=== PATIENT | female | born 1990 | race Caucasian/White ===

== ENCOUNTER 2017-09-20 06:00 | Inpatient (IN) ==
[2017-09-20] MEDS ORDERED: Famotidine 20 MG/2 ML VIAL IVP PRN (06:37)
[2017-09-20] MEDS ORDERED: Lidocaine 1% 20 ML MDV INFILT PRN (06:37)
[2017-09-20] MEDS ORDERED: Naloxone 0.4 MG/ML INJ IVP PRN (06:37)
[2017-09-20] MEDS ORDERED: Ringers Solution, Lactated 1,000 ML ONE (06:37)
[2017-09-20] MEDS ORDERED: Ondansetron 4 MG/2 ML VIAL IVP PRN (06:37)
[2017-09-20] MEDS ORDERED: *HR* Nalbuphine 10 MG/ML AMPUL IVP PRN (06:37)
[2017-09-20] MEDS ORDERED: Ringers Solution, Lactated 1,000 ML IVC SCH (06:45)
[2017-09-20] MEDS ORDERED: Oxytocin 20 units/ LR 1000 mL 20 UNIT/1,000 ML BAG IVC SCH (06:45)
[2017-09-20 06:50] LABS: Basophils % 0.1 %; Eosinophils # 0.1 K/mcL (0.0-0.6); Eosinophils % 0.5 %; Hematocrit 32.3 % (35.3-44.9); Hemoglobin 10.3 g/dL (11.5-15.4); Immature Granulocytes % 0.8 % (0-4); Lymphocytes # 2.6 K/mcL (0.6-4.6); Lymphocytes % 22.8 %; Mean Corpuscular HGB Conc 31.9 g/dL (31.6-35.5); Mean Corpuscular Hemoglobin 27.2 pg (28.0-33.3); Mean Corpuscular Volume 85.4 fL (83.0-100.0); Mean Platelet Volume 12.2 fL (9.4-12.4); Monocytes # 0.9 K/mcL (0.0-1.3); Monocytes % 8.1 %; Neutrophils # 7.6 K/mcL (1.6-8.9); Platelet Count 183 K/mcL (140-400); Red Blood Count 3.78 M/mcL (3.82-4.97); Red Cell Distribution Width 14.2 % (11.5-14.5); Segmented Neutrophils % 67.7 %
[2017-09-20 07:00] LABS: Amphetamine Screen,Urine Negative ng/mL (Cutoff=1000); Barbiturate Screen,Urine Negative ng/mL (Cutoff=200); Benzodiazepines Screen,Urine Negative ng/mL (Cutoff=200); Cannabinoid Screen,Urine Negative ng/mL (Cutoff = 50); Cocaine Screen,Urine Negative ng/mL (Cutoff= 300); Opiate Screen,Urine Negative ng/mL (Cutoff=300); Phencyclidine Screen,Urine Negative ng/mL (Cutoff=25)
--- NOTE | 2017-09-20 07:01 | OB/GYN History & Physical ---
Date of Encounter: 09/20/17 Time of Encounter: 06:57 Assessment and Plan (1) 41 weeks gestation of Current visit: Yes Status: Acute (2) Post term , 41 weeks Current visit: Yes Status: Acute (3) Encounter for elective induction of labor Current visit: Yes Status: Acute Admit to L&D for scheduled IOL Labs - CBC CEFM Pain management plan: undecided but likely epidural Anticipate POC to be decided per Dr. Robertson History of Present Illness Chief complaint: Scheduled IOL HPI: Ms. Lopez is a 26 year old female at 41weeks +1 day gestation with an EDB of 09/12/17 dated by LMP. She presents for scheduled IOL. She endorses good FM and denies contractions, LOF, vaginal bleeding. Her course has been uncomplicated. She has been cared for by our practice and records have been reviewed. Labs: O+ GBS- HIV- Hep B- T. Palladium - Rubella immune Varicella immune Past Med Surg Social Fam HX - Past Medical History Medical history: no medical history - Past Surgical History Surgical History: no surgical history - Social History Smoking Status: Never smoker Alcohol use: none Drug use: none Current living situation: Home - Independent Activity Level: Independent ambulation Recent Out of Country Travel Within the Last 8 Weeks: No Obstetrical History - Pregnancies : 1 Para: 0 Term: 0 : 0 Ab's: 0 Livin Medications and Allergies Vit/Iron Fumarate/FA [ Tablet] 1 tab ORAL RINSE DAILY 09/20/17 [History] 3 Allergy/AdvReac Type Severity Reaction Status Date / Time No Known Allergies Allergy Verified 09/20/17 07:03 Review of System OB All systems PM: reviewed and no additional remarkable complaints except as stated Exam - Constitutional Constitutional: well developed, well nourished, no acute distress, average body habitus - HEENT HEENT: Normocephaly, Mucus Membranes Moist - Neck Neck exam: full ROM - Lungs Respiratory exam: CTAB - Cardiovascular Cardiovascular exam: RRR, +S1, +S2 - Breasts Breast: bilateral: normal - Abdomen Abdomen: Present: bowel sounds normal, gravid, non tender - Extremities Extremities exam: normal inspection, radial pulses palpable and symmetrical - Vulva Vulva: bilateral: normal - Vagina Vagina: Present: normal moisture - Cervix Dilation: 1 Effacement: 60 Station: -2 - Uterus Uterus exam: Present: normal size, normal contour - Anus/Rectum Anus/Rectum: Present: normal perianal skin Results Result Diagrams: 09/20/17 06:00 Abnormal lab results WBC 11.2 K/mcL (4.3-11.1) H 09/20/17 06:00 RBC 3.78 M/mcL (3.82-4.97) L 09/20/17 06:00 Hgb 10.3 g/dL (11.5-15.4) L 09/20/17 06:00 Hct 32.3 % (35.3-44.9) L 09/20/17 06:00 MCH 27.2 pg (28.0-33.3) L 09/20/17 06:00 All other labs normal. - VTE Reasons for not Prescribing Prophylaxis: Treatment not Indicated - Low risk for VTE
[2017-09-20] MEDS ORDERED: Methylergonovine 0.2 MG/ML AMPUL IM ONE (08:11)
[2017-09-20] MEDS ORDERED: miSOPROStol 100 MCG TABLET PO STA ×2 (08:43→08:55)
--- NOTE | 2017-09-20 08:58 | OB Labor Progress Note ---
Date of Encounter: 09/20/17 Time of Encounter: 08:56 Labor Progress Note - Subjective Subjective: Pt denies complaints at this time. - Cervix Cervix: 80/-2 - Heart Tones Heart Tones: Category I - [place]: none - Interventions Interventions: Christie balloon placed in cervix using sterile technique. Balloon inflated with 40ml sterile water. Pt tolerated well. - Plan Plan: Continue to monitor. Allow pt to be OOB on birthing ball.
--- NOTE | 2017-09-20 09:41 | Anesthesia Evaluation PreOp ---
Date of Encounter: 09/20/17 Time of Encounter: 09:23 - Past History Planned Operation: vaginal del, G1 induction 41wks Cardiac History: Denies any Significant Hx Pulmonary History: Denies Any Significant HX BAG SHAKER History: Denies Any Significant HX Other Medical History: Denies Any Significant HX Anesthesia History: No Prior Anesthetic Complications, Past Anesthesia Alcohol Use: none Drug use: none Medications and Allergies Vit/Iron Fumarate/FA [ Tablet] 1 tab ORAL RINSE DAILY 09/20/17 [History] 3 Allergy/AdvReac Type Severity Reaction Status Date / Time No Known Allergies Allergy Verified 09/20/17 07:03 Anesthesia Results - Labs 09/20/17 06:00 Anesthesia Exam - HEENT Pupil (Motor): Pupils equal Mallampati: I Teeth: Normal Oral Opening: Greater than 3 - BAG SHAKER LOC: Oriented BAG SHAKER Motor: Normal RUE, Normal LUE, Normal RLE, Normal LLE, Normal Face BAG SHAKER Sensory: Normal: RUE, LUE, RLE, LLE, Face - Cardiac Rhythm: Regular Murmur: None - Pulmonary Breath Sounds: bilateral Clear Respiratory Effort: Symmetrical Anesthesia Assess/Plan ASA Score: 2 Modified Aren Scale for Level of Consciousness: Cooperative, oriented, and tranquil Anesthetic Plan: General, Regional Monitoring Plan: Standard Monitors Recovery Plan: PACU
[2017-09-20] MEDS ORDERED: Epidural Premix (fent/bupiv) 110 ML EP SCH (09:45)
--- NOTE | 2017-09-20 14:15 | Anesthesia Procedures ---
Date of Encounter: 09/20/17 Time of Encounter: 13:53 Procedures: Anesthesia - Epidural/Spinal Patient ID/Chart reviewed: Yes Patient examined: Yes OB Eval: Gestational age: term OB Eval: : 1 OB Eval: Contractions: Non-stressed pattern Consent Obtained: Yes Supplemental Oxygen: None/Room Air Site Prep: Aseptic Technique, Sterile prep and drape, 0.5% Chlorhexidine/Alcohol Patient position: upright Local Anesthetic: Lidocaine 1% Amount of Local Anesthetic used: 1 Touhy Needle Gauge: 18 Touhy Needle Depth (cm): 6 Catheter Depth at Skin (cm): 10 Test Dose (1.5% Lido + Epi): Volume given (mls): 3 Test Dose Result: Negative Loading Dose: Other: 10ml from solution Loading Dose Administered: Thru Catheter Infusion Med: 0.125% Bupivacaine w/ 2 mcg/ml Fentanyl Infusion Rate (mls/hr): [address]: Tegaderm, Tape Interspace Used: L3-L4 Loss of Resistance (CUCO): Yes (saline) Blood: No CSF: No Paresthesia: No Procedure: vss though out procedure, FHR stable per RN's
[2017-09-20] MEDS ORDERED: Epidural Premix (fent/bupiv) 110 ML EP ONE ×2 (14:19→19:26)
--- NOTE | 2017-09-20 15:10 | OB Labor Progress Note ---
Date of Encounter: 09/20/17 Time of Encounter: 15:08 Labor Progress Note - Subjective Subjective: Pt comfortable with epidural - Cervix Cervix: 5/80/0 - Heart Tones Heart Tones: Category I - Dietrich Dietrich: 2-4 minutes - Interventions Interventions: AROM for moderate amount clear fluid - Plan Plan: Continue to monitor and change position frequently. Will augment with pitocin if needed. Anticipate .
[2017-09-20] MEDS ORDERED: Acetaminophen 325 MG TABLET PO ONE (21:59)
--- NOTE | 2017-09-20 23:57 | OB/GYN Procedure Note ---
Delivery - Delivery Date: 09/20/17 Provider: Carline Robertson Intrapartum events: none Delivery induction: AROM, oxytocin, jacob, misoprostol Delivery monitor: external FHT, external uterine, internal uterine Anesthesia: epidural Estimated Blood Loss: 500 - Infant (s) A Delivery Date: 09/20/17 Infant Delivery Time: 23:30 Presentation: vertex Position: OTIS Route of delivery: Gender: Male Viability: Viable Pounds: 9 Ounces: 7 at 1 minute: 8 at 5 mins: 9 Shoulder Dystocia: not encountered Specimens collected: cord blood Placenta: spontaneous Cord: nuchal cord, 3 umbilical vessels, delivered through nuchal - Repair Episiotomy: none Laceration Description: Perineal - 3rd Degree (partial) - Complications Delivery complications: none Delivery comments: Called to room with patient complete and +2 station. Under maternal effort she delivered a viable male weighing 9 lbs 7 oz and Apgars 8 and 9 at one and five minutes respectively. She delivered over a partial third degree laceration. was bulb suctioned at the perineum. A loose nuchal cord was noted and she delivered through. was placed on mom's abdomen. Cord was clamped and cut. Cord blood was collected. Third degree laceration was repaired using 2-0 and 3-0 vicryl in standard fashion. Placenta delivered spontaneously, complete, and intact with a 3 vessel cord. Mother and are recovering in the LDR in stable condition. - Disposition Mom disposition: stable in LDR disposition: stable in LDR
[2017-09-21] MEDS ORDERED: Methylergonovine 0.2 MG/ML AMPUL IM ONE (00:01)
[2017-09-21] MEDS ORDERED: Acetaminophen 325 MG TABLET PO PRN (00:18)
[2017-09-21] MEDS ORDERED: Oxytocin 20 units/ LR 1000 mL 20 UNIT/1,000 ML BAG IVC SCH (00:18)
[2017-09-21] MEDS ORDERED: Oxytocin 20 units/ LR 1000 mL 20 UNIT/1,000 ML BAG IVC ONE (00:18)
[2017-09-21 04:51] LABS: Basophils % 0.1 %; Platelet Count 169 K/mcL (140-400)
[2017-09-21 04:53] LABS: Hematocrit 25.9 % (35.3-44.9); Hemoglobin 8.3 g/dL (11.5-15.4); Immature Granulocytes % 0.8 % (0-4); Lymphocytes # 1.6 K/mcL (0.6-4.6); Lymphocytes % 6.3 %; Mean Corpuscular Hemoglobin 26.9 pg (28.0-33.3); Mean Corpuscular Volume 84.1 fL (83.0-100.0); Mean Platelet Volume 12.6 fL (9.4-12.4); Monocytes % 7.4 %; Neutrophils # 21.4 K/mcL (1.6-8.9); Red Blood Count 3.08 M/mcL (3.82-4.97); Red Cell Distribution Width 14.4 % (11.5-14.5); Segmented Neutrophils % 85.4 %
[2017-09-21 05:18] LABS: Monocytes # 1.9 K/mcL (0.0-1.3)
[2017-09-21 05:45] LABS: Platelet Estimate Normal (Normal)
[2017-09-21 05:46] LABS: Polychromasia 1+ (Not Present)
[2017-09-21] MEDS: Prenatal Vit/FA 1 EACH TABLET PO SCH (07:52)
[2017-09-21] MEDS: Ibuprofen 600 MG TABLET PO PRN ×3 (07:52→21:56)
--- NOTE | 2017-09-21 09:19 | OB/GYN Progress Note ---
Date of Encounter: 09/21/17 Time of Encounter: 09:16 - Assessment and Plan (1) Vaginal delivery Current Visit: Yes Status: Acute S/P vaginal delivery day 1 Meeting post delivery milestones Anticipate discharge home tomorrow. Subjective - Subjective Principal diagnosis: Vaginal Delivery Interval history: S/P Vaginal delivery Day 1 Pain is well controlled Lochia is light with clots Tolerating regular diet VSS with Support Anticipate discharge home tomorrow Patient reports: appetite normal, voiding normally, pain well controlled, ambulating normally [place]: doing well, nursing well Objective - Latest Vital Signs Latest vital signs: Vital Signs Temp Pulse Resp BP Pulse Ox 09/21/17 07:30 98.4 F 87 16 105/71 98 09/21/17 04:35 98.1 F 62 14 108/69 99 09/21/17 03:30 98.3 F 81 16 120/74 96 09/21/17 01:30 97.5 F L 66 14 114/75 98 Intake and Output 09/20/17 09/21/17 09/21/17 23:59 07:59 15:59 Intake Total 550 / 550 Output Total 2400 / 2400 Balance -1850 / -1850 Intake: Oral 550 / 550 Output: Urine 2400 / 2400 Other: Weight 75.296 kg Patient Weight 09/21/17 23:59 Weight 75.296 kg - Exam Lungs: bilateral: normal Chest: Normal S1, Normal S2 Extremities: Present: normal Abdomen: Present: normal appearance, soft. Absent: gravid, distention, tenderness Uterus: Present: normal, firm Uterus Position: At Umbilicus, Midline - Labs Labs: Laboratory Results - last 24 hr 09/21/17 04:09 WBC 25.0 H D RBC 3.08 L Hgb 8.3 L D Hct 25.9 L MCV 84.1 MCH 26.9 L MCHC 32.0 RDW 14.4 Plt Count 169 MPV 12.6 H Immature Gran % 0.8 Seg Neutrophils % 85.4 Lymphocytes % 6.3 Monocytes % 7.4 Eosinophils % 0.0 Basophils % 0.1 Neutrophils # 21.4 H Lymphocytes # 1.6 Monocytes # 1.9 H Eosinophils # 0.0 Basophils # 0.0 Platelet Estimate Normal Polychromasia 1+ A
[2017-09-22 08:17] VITALS: BP 84/41
--- NOTE | 2017-09-22 09:09 | Discharge Summary ---
Date of Encounter: 09/22/17 Time of Encounter: 09:04 - Discharge Diagnosis (1) Normal vaginal delivery of first Priority: Primary Status: Acute Comments: PPD #2 Pain well controlled with PO pain meds Tolerating regular diet Voiding independently Passing flatus, but no BM yet Lochia moderate, no clots Discharge home today (2) Breast feeding status of mother Priority: Secondary Status: Acute (3) anemia Priority: Secondary Status: Acute (4) Third degree perineal laceration during delivery Priority: Secondary Status: Acute Qualifiers: Third degree perineal laceration subtype: unspecified Qualified Code(s): O70.20 - Third degree perineal laceration during delivery, unspecified - Discharge Medications Prescriptions: Ibuprofen [Motrin] 600 mg PO Q6HR PRN #60 tablet PRN Reason: Cramping Docusate [Colace] 100 mg PO BID #60 capsule Ferrous Sulfate 325 mg PO BID #60 tablet Home Medications: Vit/Iron Fumarate/FA [ Tablet] 1 tab ORAL RINSE DAILY 09/20/17 [History] Acetaminophen [Tylenol] 650 mg PO Q6HR PRN tablet 09/22/17 [Rx] Docusate [Colace] 100 mg PO BID #60 capsule 09/22/17 [Rx] Ferrous Sulfate 325 mg PO BID #60 tablet 09/22/17 [Rx] Ibuprofen [Motrin] 600 mg PO Q6HR PRN #60 tablet 09/22/17 [Rx] Allergies/Adverse Reactions: 3 Allergy/AdvReac Type Severity Reaction Status Date / Time No Known Allergies Allergy Verified 09/20/17 07:03 Data Procedures and tests throughout hospitalization: Laboratory Tests 09/20/17 09/20/17 09/21/17 06:00 06:30 04:09 WBC 11.2 H 25.0 H D RBC 3.78 L 3.08 L Hgb 10.3 L 8.3 L D Hct 32.3 L 25.9 L MCV 85.4 84.1 MCH 27.2 L 26.9 L MCHC 31.9 32.0 RDW 14.2 14.4 Plt Count 183 169 MPV 12.2 12.6 H Immature Gran % 0.8 0.8 Seg Neutrophils % 67.7 85.4 Lymphocytes % 22.8 6.3 Monocytes % 8.1 7.4 Eosinophils % 0.5 0.0 Basophils % 0.1 0.1 Neutrophils # 7.6 21.4 H Lymphocytes # 2.6 1.6 Monocytes # 0.9 1.9 H Eosinophils # 0.1 0.0 Basophils # 0.0 0.0 Platelet Estimate Normal Polychromasia 1+ A Urine Opiates Screen Negative Ur Barbiturates Screen Negative Ur Phencyclidine Scrn Negative Ur Amphetamines Screen Negative U Benzodiazepines Scrn Negative Urine Cocaine Screen Negative U Marijuana (THC) Screen Negative Date of admission: 09/20/17 06:12 Primary care physician: Yeimi Yin Ri Consults: 09/21/17 00:18 Consult to Broadcast Operations Technician [CONS] Routine Comment: Vaginal delivery, consult needed Discharging clinician: Vanessa Francois Anticipated date of discharge: 09/22/17 - Patient Status Disposition: Home, Self-Care Condition: Good Functional capacity at discharge: independent ambulation Overall status at discharge: patient is progressing back to baseline - Discharge Instructions Follow Up With: Yeimi Reid MD [Primary Care Provider] - Carline Robertson DO [Partnered Physician] - - Diet and Activity Activity: increase activity as tolerated Diet: regular diet Hospital Course Reason for admission: induction of labor, IUP at term Delivery: Episiotomy: none Laceration: 3rd degree Other procedures: none complications: none Discharge diagnosis: IUP at term delivered [place] baby: male Time Attestation: Total time spent providing and/or coordinating discharge services: Time Spent: Greater than 30 minutes Exam - Constitutional Vitals: Temp Pulse Resp BP Pulse Ox 98.3 F 85 18 84/41 99 09/22/17 08:15 09/22/17 08:15 09/22/17 08:15 09/22/17 08:15 09/22/17 08:15 General appearance IM: A&O X 3 - Respiratory Respiratory exam: Present: CTAB - Cardiovascular Cardiovascular exam IM: Present: RRR, +S1, +S2 - GI/Abdominal GI/Abdominal exam IM: normal bowel sounds - Rectal Rectal exam: deferred - Uterine Tone: Firm Uterus Position: At Umbilicus, Midline - Extremities Exam Extremities exam IM: Present: normal inspection, pedal edema, radial pulses palpable and symmetrical - Neurological Exam Neurological exam: alert, oriented X3 - Psychiatric Additional comments: Pt tearful during visit. S/sx of PPD discussed at length and pt and verbalize when to call.
[2017-09-22] MEDS ORDERED: Benzocaine/Menthol 56 GM AEROSOL SPRAY TP PRN (10:03)
[2017-09-22] MEDS ORDERED: Benzocaine/Menthol 56 GM AEROSOL SPRAY TP ONE (10:09)
[2017-09-22] MEDS: Prenatal Vit/FA 1 EACH TABLET PO SCH (10:13)
[2017-09-22] MEDS: Ibuprofen 600 MG TABLET PO PRN (10:16)
== END 2017-09-22 16:55 | disposition home or self-care (01) | DRG 775 ==
LOC: 1NENULAB 06:12 → 1NENUOBS 09-21 02:42
PROVIDERS: ADMIT Obstetrics & Gynecology; ATTEND Obstetrics & Gynecology

== ENCOUNTER 2020-08-25 06:00 | Inpatient (IN) ==
[2020-08-25] MEDS ORDERED: Ondansetron 4 MG/2 ML VIAL IVP PRN (06:02)
[2020-08-25] MEDS ORDERED: *HR* Nalbuphine 10 MG/ML AMPUL IV PRN (06:02)
[2020-08-25] MEDS ORDERED: Metoclopramide 10 MG/2 ML VIAL IVP PRN (06:02)
[2020-08-25] MEDS ORDERED: Famotidine 20 MG/2 ML VIAL IVP PRN (06:02)
[2020-08-25] MEDS ORDERED: Naloxone 0.4 MG/ML INJ IVP PRN (06:02)
[2020-08-25] MEDS ORDERED: Azithromycin 500 MG in 0.9 % Sodium Chloride 250 ML IVPB ONE (06:02)
[2020-08-25] MEDS ORDERED: Penicillin G Potassium 5,000,000 UNIT in 0.9 % Sodium Chloride Mini Bag 100 ML IVPB ONE (06:04)
[2020-08-25] MEDS ORDERED: Oxytocin 20 units/ LR 1000 mL 20 UNIT/1,000 ML BAG IVC SCH ×2 (06:15→22:00)
[2020-08-25] MEDS ORDERED: EPHEDrine 50 MG/ML VIAL IVP PRN (06:23)
[2020-08-25] MEDS: Ringers Solution, Lactated 1,000 ML IVC SCH ×2 (06:42→16:21)
[2020-08-25 07:40] LABS: Basophils % 0.2 %; Eosinophils # 0.1 K/mcL (0.0-0.6); Eosinophils % 0.6 %; Hematocrit 40.3 % (35.3-44.9); Hemoglobin 13.3 g/dL (11.5-15.4); Immature Granulocytes % 0.8 % (0-4); Lymphocytes # 2.7 K/mcL (0.6-4.6); Lymphocytes % 27.4 %; Mean Corpuscular Hemoglobin 33.9 pg (28.0-33.3); Mean Corpuscular Volume 102.8 fL (83.0-100.0); Mean Platelet Volume 11.6 fL (9.4-12.4); Monocytes # 0.7 K/mcL (0.0-1.3); Neutrophils # 6.2 K/mcL (1.6-8.9); Platelet Count 136 K/mcL (140-400); Red Blood Count 3.92 M/mcL (3.82-4.97); Red Cell Distribution Width 15.4 % (11.5-14.5); White Blood Count 9.7 K/mcL (4.3-11.1)
[2020-08-25 07:57] LABS: Amphetamine Screen,Urine Negative ng/mL (Cutoff=1000); Barbiturate Screen,Urine Negative ng/mL (Cutoff=200)
[2020-08-25 07:58] LABS: Benzodiazepines Screen,Urine Negative ng/mL (Cutoff=300); Cannabinoid Screen,Urine Negative ng/mL (Cutoff = 50); Cocaine Screen,Urine Negative ng/mL (Cutoff= 300); Opiate Screen,Urine Negative ng/mL (Cutoff=300); Phencyclidine Screen,Urine Negative ng/mL (Cutoff=25)
[2020-08-25 08:25] LABS: Adenovirus Not Detected (Not Detect); Bordetella Pertussis Not Detected (Not Detect); Chlamydophila pneumoniae Not Detected (Not Detect); Coronavirus 229E Not Detected (Not Detect); Coronavirus HKU1 Not Detected (Not Detect); Coronavirus NL63 Not Detected (Not Detect); Coronavirus OC43 Not Detected (Not Detect); Human Metapneumovirus Not Detected (Not Detect); Human Rhinovirus/Enterovirus Not Detected (Not Detect); Influenza A Subtype 2009 H1 Not Detected (Not Detect); Influenza B Not Detected (Not Detect); Mycoplasma pneumoniae Not Detected (Not Detect); Parainfluenza Virus 1 Not Detected (Not Detect); Parainfluenza Virus 2 Not Detected (Not Detect); Parainfluenza Virus 3 Not Detected (Not Detect); Parainfluenza Virus 4 Not Detected (Not Detect); Respiratory Syncytial Virus Not Detected (Not Detect); SARS-CoV-2 Not Detected (Not Detect)
[2020-08-25] MEDS ORDERED: Ropivacaine/PF 0.2% 20 ML VIAL EP ONE (09:36)
[2020-08-25] MEDS ORDERED: *HR* FentaNYL (PF) 100 MCG/2 ML VIAL EP ONE (09:36)
[2020-08-25] MEDS ORDERED: *HR* FentaNYL (PF) 100 MCG/2 ML VIAL ONE ×2 (09:40→15:17)
[2020-08-25] MEDS ORDERED: Ropivacaine/PF 0.2% 20 ML VIAL ONE (09:41)
[2020-08-25] MEDS: Penicillin G Potassium 2,500,000 UNIT/105 ML MLS IVPB SCH ×3 (11:10→16:22)
[2020-08-25] MEDS ORDERED: Methylergonovine 0.2 MG/ML AMPUL IM ONE (11:31)
[2020-08-25] MEDS: Epidural Premix (fent/bupiv) 110 ML EP SCH ×2 (16:20→16:21)
[2020-08-25] MEDS ORDERED: Oxytocin 20 units/ LR 1000 mL 20 UNIT/1,000 ML BAG IVC ONE (20:08)
[2020-08-25] MEDS ORDERED: Lanolin 7 G OINT...G. TP PRN (21:59)
[2020-08-25] MEDS ORDERED: Benzocaine/Menthol 56 GM AEROSOL SPRAY TP PRN (21:59)
[2020-08-26] MEDS: Penicillin G Potassium 2,500,000 UNIT/105 ML MLS IVPB SCH ×3 (02:27→04:42)
[2020-08-26] MEDS: Ringers Solution, Lactated 1,000 ML IVC SCH (02:28)
[2020-08-26] MEDS: Acetaminophen 325 MG TABLET PO PRN ×2 (04:37→19:42)
[2020-08-26 06:20] LABS: Basophils % 0.1 %; Eosinophils % 0.1 %; Hematocrit 35.1 % (35.3-44.9); Hemoglobin 11.9 g/dL (11.5-15.4); Immature Granulocytes % 0.4 % (0-4); Lymphocytes # 2.5 K/mcL (0.6-4.6); Mean Corpuscular HGB Conc 33.9 g/dL (31.6-35.5); Mean Corpuscular Volume 100.3 fL (83.0-100.0); Mean Platelet Volume 11.2 fL (9.4-12.4); Monocytes # 1.6 K/mcL (0.0-1.3); Monocytes % 9.3 %; Neutrophils # 13.4 K/mcL (1.6-8.9); Platelet Count 141 K/mcL (140-400); Red Cell Distribution Width 14.9 % (11.5-14.5); Segmented Neutrophils % 76.1 %
[2020-08-26 06:23] LABS: White Blood Count 17.6 K/mcL (4.3-11.1)
[2020-08-26] MEDS: *HR* HYDROcodone/Acet 5/325 mg TABLET PO PRN ×2 (08:37→13:58)
[2020-08-26] MEDS ORDERED: Prenatal Vit/FA 1 EACH TABLET PO SCH (09:00)
[2020-08-26] MEDS: Ibuprofen 600 MG TABLET PO PRN (12:40)
[2020-08-26 22:02] VITALS: BP 111/62
[2020-08-27] MEDS: Ibuprofen 600 MG TABLET PO PRN (00:08)
[2020-08-27] MEDS: Acetaminophen 325 MG TABLET PO PRN (07:51)
== END 2020-08-27 13:00 | disposition home or self-care (01) | DRG 807 ==
LOC: 1NENULAB 06:01 → 1NENUOBS 08-26 01:45
PROVIDERS: ADMIT Obstetrics & Gynecology; ATTEND Obstetrics & Gynecology